=== PATIENT | female | born 1960 | race Caucasian/White ===

== ENCOUNTER → 2020-03-05 | Outpatient (CLI) | payer OTHER ==
[~2020-03-05] MED LIST: ADULT LOW DOSE81 MG PO; DIOVAN PO; DIOVAN40 MG; FENOFIBRATE134 MG PO; GLUCOPHAGE500 MG PO; GYNODIOL2 MG PO; JANUVIA100 MG; LANTUS SC; LIPITOR40 MG PO; SERTRALINE HCL25 M1
== END ==
LOC: M.RAD 08:55
PROVIDERS: ATTEND Family Medicine
DX: Z12.31 Encounter for screening mammogram for malignant neoplasm of breast (principal)

== ENCOUNTER → 2020-03-10 | Outpatient (CLI) | payer OTHER | LOC: M.RAD 11:27 | PROVIDERS: ATTEND Family Medicine | DX: R92.1 Mammographic calcification found on diagnostic imaging of breast (principal) ==

== ENCOUNTER → 2020-09-03 | Outpatient (CLI) | payer OTHER | LOC: M.RAD 13:24 | PROVIDERS: ATTEND Family Medicine | DX: R92.8 Other abnormal and inconclusive findings on diagnostic imaging of breast (principal) ==